=== PATIENT | male | born 1960 | race Caucasian/White ===

== ENCOUNTER → 2017-01-25 | Outpatient (CLI) | payer BC ==
[2017-01-25 08:33] LABS: CHLORIDE,CL 104 mmol/L (98-110); SODIUM,NA 140 mmol/L (136-146)
== END ==
LOC: MW.CHFP 07:30
PROVIDERS: ATTEND Student in an Organized Health Care Education/Training Program
DX: Z00.00 Encounter for general adult medical examination without abnormal findings (principal); D58.2 Other hemoglobinopathies
CPT/HCPCS: 36415; 80053; 80061; 85027

== ENCOUNTER → 2017-02-01 | Outpatient (CLI) | payer BC ==
[2017-02-01 08:28] LABS: CHLORIDE,CL 107 mmol/L (98-110); SODIUM,NA 141 mmol/L (136-146)
== END | disposition home or self-care (01) ==
LOC: MW.LAB 07:30
PROVIDERS: ATTEND Internal Medicine Endocrinology, Diabetes & Metabolism
DX: E29.1 Testicular hypofunction (principal)
CPT/HCPCS: 36415; 80053; 84402; 84403; 84439; 84443

== ENCOUNTER 2017-09-10 10:42 | Observation (INO) | payer BC ==
[2017-09-10] MEDS ORDERED: Aspirin 81 MG Tab.Chew PO ONE (10:58)
[2017-09-10] MEDS ORDERED: Sodium Chloride 0.9% 10 ML Syringe FLUSH PRN (10:58)
[2017-09-10] MEDS ORDERED: Sodium Chloride 0.9% 2.5 ML Syringe FLUSH PRN (10:58)
--- NOTE | 2017-09-10 10:58 | EDM.PDOC ---
ED HPI GENERAL MEDICAL PROBLEM - General Chief Complaint: General Stated Complaint: LT ARM WEAKNESS Time Seen by Provider: 09/10/17 10:45 Source of Information: Reports: Patient History Limitations: Reports: No Limitations - History of Present Illness INITIAL COMMENTS - FREE TEXT/NARRATIVE: History of present illness: []Patient arrives ER complaining of left arm tingling radiating down to his thumb. It began at 7:30 when he was in a stressful meeting. He denies any chest or neck pain, shortness of breath, lightheadedness or dizziness. She has not had this pain in the past. Review of systems: As per history of present illness and below otherwise all systems reviewed and negative. Past medical history: As per history of present illness and as reviewed below otherwise noncontributory. Surgical history: As per history of present illness and as reviewed below otherwise noncontributory. Social history: No reported history of drug or alcohol abuse. Family history: As per history of present illness and as reviewed below otherwise noncontributory. Physical exam: General: Well developed, well nourished in NAD HEENT: Atraumatic, normocephalic, pupils reactive, negative for conjunctival pallor or scleral icterus, mucous membranes moist, throat clear, neck supple, nontender, trachea midline. Lungs: Clear to auscultation, breath sounds equal bilaterally, chest nontender. Heart: S1S2, regular, negative for clicks, rubs, or JVD. Abdomen: Soft, nondistended, nontender. Negative for masses or hepatosplenomegaly. Negative for costovertebral tenderness. Pelvis: Stable nontender. Genitourinary: Deferred. Rectal: Deferred. Extremities: Atraumatic, negative for cords or calf pain. Neurovascular unremarkable. Neuro: Awake, alert, oriented. Cranial nerves II through XII unremarkable. Cerebellum unremarkable. Motor and sensory unremarkable throughout. Exam nonfocal. Diagnostics: []EKG labs and chest x-ray done essentially all normal Therapeutics: []aspirin nitroglycerin given Impression: []Left arm tingling Plan: []Admit for observation Definitive disposition and diagnosis as appropriate pending reevaluation and review of above. Headache Pain Score (Numeric/FACES): 2 - Related Data Allergies Allergy/AdvReac Type Severity Reaction Status Date / Time Penicillins Allergy Rash Verified 01/18/16 12:44 Home Meds: Home Meds Losartan [Cozaar] 25 mg PO BID 09/10/17 [History] Past Medical History Cardiovascular History: Reports: Hypertension Respiratory History: Reports: None Other Gastrointestinal History: occasional heartburn Genitourinary History: Reports: None Musculoskeletal History: Reports: Arthritis, Fracture Neurological History: Reports: None Psychiatric History: Reports: None Endocrine/Metabolic History: Reports: None Hematologic History: Reports: None Immunologic History: Reports: None Oncologic (Cancer) History: Reports: None Dermatologic History: Reports: None - Past Surgical History Head Surgeries/Procedures: Reports: None HEENT Surgical History: Reports: Oral Surgery Social & Family History - Tobacco Use Smoking Status *Q: Never Smoker Second Hand Smoke Exposure: No - Caffeine Use Caffeine Use: Reports: Coffee - Recreational Drug Use Recreational Drug Use: No Drug Use in Last 12 Months: No ED ROS GENERAL - Review of Systems Review Of Systems: See Below (See history of present illness) ED EXAM, GENERAL - Physical Exam Exam: See Below (See history of present illness) Course - Vital Signs Last Recorded V/S: Last Vital Signs Temp 97.2 F 09/10/17 10:51 Pulse 67 09/10/17 13:39 Resp 18 09/10/17 13:39 BP 136/92 H 09/10/17 13:39 Pulse Ox 98 09/10/17 13:39 - Orders/Labs/Meds Orders: Active Orders 24 hr Category Date Time Status Admission Status [Patient Status] [ADT] Stat ADT 09/10/17 13:05 Active EKG Documentation Completion [RC] STAT Care 09/10/17 11:20 Active Sodium Chloride 0.9% [Saline Flush] Med 09/10/17 10:58 Active 10 ml FLUSH ASDIRECTED PRN Sodium Chloride 0.9% [Saline Flush] Med 09/10/17 10:58 Active 2.5 ml FLUSH ASDIRECTED PRN Saline Lock Insert [OM.PC] Stat Oth 09/10/17 10:58 Ordered Medication Orders Acetaminophen (Tylenol) 650 mg PO Q4H PRN PRN Reason: Pain (mild 1-3) Enoxaparin Sodium (Lovenox) 40 mg SUBCUT Q24H JESSIE Losartan Potassium (Cozaar) 25 mg PO BID JESSIE Sodium Chloride (Saline Flush) 10 ml FLUSH ASDIRECTED PRN PRN Reason: Keep Vein Open Last Admin: 09/10/17 11:04 Dose: 10 ml Sodium Chloride (Saline Flush) 2.5 ml FLUSH ASDIRECTED PRN PRN Reason: Keep Vein Open Last Admin: 09/10/17 11:04 Dose: 2.5 ml Labs: Laboratory Tests 09/10/17 09/10/17 Range/Units 10:55 10:55 WBC 3.32 L (4.0-11.0) K/uL RBC 4.52 (4.50-5.90) M/uL Hgb 14.8 (13.0-17.0) g/dL Hct 42.2 (38.0-50.0) % MCV 93.4 (80.0-98.0) fL MCH 32.7 H (27.0-32.0) pg MCHC 35.1 (31.0-37.0) g/dL RDW Std Deviation 44.4 (28.0-62.0) fl RDW Coeff of Monica 13 (11.0-15.0) % Plt Count 135 L (150-400) K/uL MPV 9.80 (7.40-12.00) fL Neut % (Auto) 71.7 (48.0-80.0) % Lymph % (Auto) 15.7 L (16.0-40.0) % Mchenry % (Auto) 10.5 (0.0-15.0) % Eos % (Auto) 1.8 (0.0-7.0) % Baso % (Auto) 0.3 (0.0-1.5) % Neut # (Auto) 2.4 (1.4-5.7) K/uL Lymph # (Auto) 0.5 L (0.6-2.4) K/uL Mchenry # (Auto) 0.4 (0.0-0.8) K/uL Eos # (Auto) 0.1 (0.0-0.7) K/uL Baso # (Auto) 0.0 (0.0-0.1) K/uL Nucleated RBC % 0.0 /100WBC Nucleated RBCs # 0 K/uL Sodium 139 (136-146) mmol/L Potassium 3.8 (3.5-5.1) mmol/L Chloride 102 (98-110) mmol/L Carbon Dioxide 27 (21-31) mmol/L BUN 13 (6.0-23.0) mg/dL Creatinine 1.0 (0.6-1.5) mg/dL Est Cr Clr Drug Dosing 77.90 mL/min Estimated GFR (MDRD) > 60.0 ml/min Glucose 121 H (60-110) mg/dL Calcium 9.4 (8.8-10.8) mg/dL Total Bilirubin 1.0 (0.1-1.5) mg/dL AST 17 (5-40) IU/L ALT 17 (8-54) IU/L Alkaline Phosphatase 25 L (40-150) Troponin I < 0.10 (0.0-0.29) NG/ML Total Protein 7.6 (6.0-8.0) g/dL Albumin 4.2 (3.5-5.0) g/dL Globulin 3.4 (2.0-3.5) g/dL Albumin/Globulin Ratio 1.2 L (1.3-2.8) Meds: Medications Generic Name Dose Route Start Last Admin Trade Name Freq PRN Reason Stop Dose Admin Acetaminophen 650 mg 09/10/17 13:34 Tylenol PO Q4H PRN Pain (mild 1-3) Enoxaparin Sodium 40 mg 09/10/17 14:00 Lovenox SUBCUT Q24H JESSIE Losartan Potassium 25 mg 09/10/17 21:00 Cozaar PO BID JESSIE Sodium Chloride 10 ml 09/10/17 10:58 09/10/17 11:04 Saline Flush FLUSH 10 ml ASDIRECTED PRN Administration Keep Vein Open Sodium Chloride 2.5 ml 09/10/17 10:58 09/10/17 11:04 Saline Flush FLUSH 2.5 ml ASDIRECTED PRN Administration Keep Vein Open Discontinued Medications Generic Name Dose Route Start Last Admin Trade Name Freq PRN Reason Stop Dose Admin Aspirin 324 mg 09/10/17 10:58 09/10/17 11:02 Aspirin PO 09/10/17 10:59 324 mg ONETIME ONE Administration Nitroglycerin 0.4 mg 09/10/17 10:58 09/10/17 11:15 Nitrostat SL 0.4 mg Q5M PRN Administration Chest Pain Departure - Departure Time of Disposition: 14:01 Disposition: Refer to Observation Condition: Good Clinical Impression: Tingling of left upper extremity - Discharge Information - My Orders Last 24 Hours: My Active Orders 09/10/17 10:58 Sodium Chloride 0.9% [Saline Flush] 10 ml FLUSH ASDIRECTED PRN Sodium Chloride 0.9% [Saline Flush] 2.5 ml FLUSH ASDIRECTED PRN Saline Lock Insert [OM.PC] Stat 09/10/17 11:20 EKG Documentation Completion [RC] STAT - Assessment/Plan Last 24 Hours: My Active Orders 09/10/17 10:58 Sodium Chloride 0.9% [Saline Flush] 10 ml FLUSH ASDIRECTED PRN Sodium Chloride 0.9% [Saline Flush] 2.5 ml FLUSH ASDIRECTED PRN Saline Lock Insert [OM.PC] Stat 09/10/17 11:20 EKG Documentation Completion [RC] STAT
[2017-09-10] MEDS: Nitroglycerin 0.4 MG Tab.SL SL PRN ×3 (11:02→11:15)
[2017-09-10 11:25] LABS: CHLORIDE,CL 102 mmol/L (98-110); SODIUM,NA 139 mmol/L (136-146)
--- NOTE | 2017-09-10 11:30 | CR ---
EXAMINATION: Portable chest radiograph. HISTORY: Shortness of breath. FINDINGS: The trachea is midline. The cardiomediastinal silhouette is within normal limits. No pulmonary infilt rates, effusions or pneumothorax. Osseous structures appear unremarkable. IMPRESSION: No acute cardiopulmonary process.
--- NOTE | 2017-09-10 12:11 | CT ---
EXAMINATION: Non contrast CT head. Coronal and sagittal reformats. HISTORY: Pain FINDINGS: No evidence of intra or extra axial hemorrhage, mass, midline shift, hydrocephalus or edema. No hypoattenuation changes in the major vascular territories to suggest acute infarct. No abnormal intracranial calcifications are detected. No evidence of substantial vascular calcificat ions. Paranasal sinuses and mastoid air cells are well aerated without substantial findings. Orbits and gl obes are symmetric. Pituitary fossa appears unremarkable. Calvarium is intact. No evidence of skull fracture. IMPRESSION: No acute intracranial findings.
[2017-09-10] MEDS ORDERED: Acetaminophen 325 MG Tab PO PRN (13:34)
--- NOTE | 2017-09-10 13:40 | PCM.HP ---
H&P History of Present Illness - General Date of Service: 09/10/17 Admit Problem/Dx: L arm tingling, ACS rule out Source of Information: Patient History Limitations: Reports: No Limitations - History of Present Illness Initial Comments - Free Text/Narative: This 56 year old male with pmh of HTN presented to the ED today with concerns of L arm tingling, headache and some troubles finding or use the right words starting around 7:30 am. He reports he was in a stressful meeting today when the symptoms started, he was ambulating and at rest at different times when this started. He denies activity made it worse. He reports saying words he didn' t mean to or that the wrong words came out. He reports the headache initially was 4/10 to occiput, no blurred or double vision. No neck pain with movement. He denies jaw pain chest pain or palpitations. He reports when coming into the ED, nitro SL did nothing for his L arm tingling, but currently it is almost gone. His Headache is now 1/10 dull nagging more that anything. He denies weakness to L arm. No trouble swallowing. Does report at times still some trouble finding words, but conversation with him is easy flowing. Does seem to get stressed and highly agitated when work is brought up. He denies tobacco use or recreational drug use. He reports drinking red wine 4 glasses a week. He reports Mother has parkinsons, HTN, and DM, his father at age 61 of lung cancer and his paternal grandfather had [place] in his 40s, but lived to be high 90s. He recently changed to a gluten free diet which helped GERD and skin irritations. In the ED troponin negative. He was given Nitro x 3 with no improvement. CXR negative. Head CT negative. BP noted to be elevate 150-160/90s. He was given ASA. He will be admitted ACS rule out with L arm tingling. Headache Pain Score (Numeric/FACES): 2 - Related Data Allergies/Adverse Reactions: Allergies Allergy/AdvReac Type Severity Reaction Status Date / Time gluten Allergy Abdominal Verified 09/10/17 14:49 Cramps Penicillins Allergy Rash Verified 10/17/15 12:44 Home Medications: Home Meds Losartan [Cozaar] 25 mg PO BID 09/10/17 [History] Aspirin 81 mg PO DAILY #30 tab.chew 09/11/17 [Rx] Past Medical History Cardiovascular History: Reports: Hypertension. Denies: Afib, Blood Clots/VTE/ DVT, CAD, [place] Respiratory History: Reports: None. Denies: Asthma, COPD, PE, SOB Other Gastrointestinal History: occasional heartburn Genitourinary History: Reports: None. Denies: Chronic Renal Insuffiency Musculoskeletal History: Reports: Arthritis, Fracture Neurological History: Reports: None. Denies: CVA, TIA Psychiatric History: Reports: None Endocrine/Metabolic History: Reports: Obesity/BMI 30+ Hematologic History: Reports: None Immunologic History: Reports: None Oncologic (Cancer) History: Reports: None Dermatologic History: Reports: None - Past Surgical History Head Surgeries/Procedures: Reports: None HEENT Surgical History: Reports: Oral Surgery Musculoskeletal Surgical History: Reports: Shoulder Surgery (R shoulder) Social & Family History - Tobacco Use Smoking Status *Q: Never Smoker Second Hand Smoke Exposure: No - Caffeine Use Caffeine Use: Reports: Coffee - Alcohol Use Alcohol Use Frequency: Weekly (4 drinks weekly) - Recreational Drug Use Recreational Drug Use: No Drug Use in Last 12 Months: No H&P Review of Systems - Review of Systems: Review Of Systems: See Below General: Reports: No Symptoms. Denies: Fever, Chills, Malaise, Weakness HEENT: Reports: Headaches (1/10 to occiput, ). Denies: Sinus Congestion, Sore Throat, Vertigo, Visual Changes Pulmonary: Reports: No Symptoms. Denies: Shortness of Breath, Cough, Sputum Cardiovascular: Reports: No Symptoms. Denies: Chest Pain, Palpitations, Edema, Lightheadedness Gastrointestinal: Reports: No Symptoms. Denies: Abdominal Pain, Black Stool, Bloody Stool, Diarrhea, Distension, Nausea, Vomiting Genitourinary: Reports: No Symptoms. Denies: Dysuria, Frequency, Burning, Incontinence Musculoskeletal: Reports: No Symptoms. Denies: Neck Pain Skin: Reports: No Symptoms Neurological: Reports: Tingling (L shoulder to fingers.) Hematologic/Lymphatic: Reports: No Symptoms Immunologic: Reports: No Symptoms, Food Allergy (gluten) Exam - Exam Exam: See Below - Vital Signs Vital Signs: Last Vital Signs Temp 97.2 F 09/10/17 10:51 Pulse 67 09/10/17 13:39 Resp 18 09/10/17 13:39 BP 136/92 H 09/10/17 13:39 Pulse Ox 98 09/10/17 13:39 Weight: 90.3 kg - Exam General: Alert, Oriented, Cooperative HEENT: Conjunctiva Clear, Mucosa Moist & [place], Pupils Equal, Pupils Reactive Neck: Supple, Trachea Midline, 2 Lungs: Clear to Auscultation, Normal Respiratory Effort Cardiovascular: Regular Rate, Regular Rhythm GI/Abdominal Exam: Normal Bowel Sounds, Soft, Non-Tender, No Organomegaly, No Distention, No Abnormal Bruit, No Mass, Pelvis Stable Back Exam: Normal Inspection, Full Range of Motion, NT Extremities: Normal Inspection, Normal Range of Motion, Non-Tender, No Pedal Edema, Normal Capillary Refill Neurological: Cranial Nerves Intact, Reflexes Equal Bilateral, Strength Equal Bilateral, Normal Gait, Normal Speech, Normal Tone Neuro Extensive - Mental Status: Alert, Oriented x3, Normal Mood/Affect, Normal Cognition, Memory Intact Neuro Extensive - Motor, Sensory, Reflexes: CN II-XII Intact, Normal Gait, Normal Reflexes. No: Tongue Deviation (L), Tongue Deviation (R), Abnormal Finger to Nose Psychiatric: Alert, Normal Affect, Normal Mood, Agitated (when talking about work) - Patient Data Result Diagrams: 09/10/17 10:55 09/10/17 10:55 EKG INTERPRETATION EKG Date: 09/10/17 Rhythm: NSR Rate (Beats/Min): 75 P-Wave: Present QRS: Normal ST-T: Normal Comparison: NA - No Prior EKG *Q Meaningful Use (ADM) - VTE *Q VTE Criteria *Q: - Stroke *Q Stroke Criteria *Q: - AMI *Q AMI Criteria *Q: - Problem List (1) HTN (hypertension) SNOMED Code(s): 70302146 ICD Code: I10 - ESSENTIAL (PRIMARY) HYPERTENSION Status: Acute Current Visit: Yes Qualifiers: Hypertension type: essential hypertension Qualified Code(s): I10 - Essential (primary) hypertension (2) Tingling of left upper extremity SNOMED Code(s): 374557649 ICD Code: R20.2 - PARESTHESIA OF SKIN Status: Acute Current Visit: Yes Problem List Initiated/Reviewed/Updated: Yes Orders Last 24hrs: Active Orders 24 hr Category Date Time Status Intake and Output [RC] QSHIFT Care 09/10/17 13:34 Ordered Oxygen Therapy [RC] PRN Care 09/10/17 13:34 Ordered Telemetry Monitoring [Cardiac Monitoring] [RC] . Care 09/10/17 13:37 Ordered DIRECTED Up ad Marisela [RC] ASDIRECTED Care 09/10/17 13:34 Ordered VTE/DVT Education [RC] PER UNIT ROUTINE Care 09/10/17 13:34 Ordered Vital Signs [RC] Q4H Care 09/10/17 13:34 Ordered Heart Healthy Diet [DIET] Diet 09/10/17 Lunch Ordered GLYCOSYLATED HEMOGLOBIN,HGBA1C [CHEM] Routine Lab 09/10/17 13:34 Ordered LIPID PANEL [CHEM] Routine Lab 09/10/17 13:34 Ordered TROPONIN I [CHEM] Q6H Lab 09/10/17 17:00 Ordered TROPONIN I [CHEM] Q6H Lab 09/10/17 23:00 Ordered Acetaminophen [Tylenol] Med 09/10/17 13:34 Ordered 650 mg PO Q4H PRN Enoxaparin [Lovenox] Med 09/10/17 13:45 Ordered 40 mg SUBCUT DAILY Losartan Med 09/10/17 21:00 Ordered 25 mg PO BID Resuscitation Status Routine Resus Stat 09/10/17 13:34 Ordered Medication Orders Acetaminophen (Tylenol) 650 mg PO Q4H PRN PRN Reason: Pain (mild 1-3) Enoxaparin Sodium (Lovenox) 40 mg SUBCUT DAILY JESSIE Non-Formulary Medication (Losartan) 25 mg PO BID JESSIE Sodium Chloride (Saline Flush) 10 ml FLUSH ASDIRECTED PRN PRN Reason: Keep Vein Open Last Admin: 09/10/17 11:04 Dose: 10 ml Sodium Chloride (Saline Flush) 2.5 ml FLUSH ASDIRECTED PRN PRN Reason: Keep Vein Open Last Admin: 09/10/17 11:04 Dose: 2.5 ml Assessment/Plan Comment:: This 56 year old male admitted with ACS rule out due to L arm tingling 1. ACS rule out: Will monitor on telemetry, trend troponins. No chest pain. Does not take daily ASA at home. Lipid panel LDL 116, HDL 39 A1c 5.6%. Will arrange outpatient stress test. 2. L arm tingling: Possible TIA, possibly secondary to anxiety/agitation with work. Had some wording finding troubles. Will obtain carotid duplex and MRI brain. Patient aware and ok with this testing. 3. HTN: Will monitor. Continue Losartan VTE prophylaxis: Lovenox. Dispo: 1-2 days pending improvement. Discharge Plan: Discharge Diagnoses: L arm tingling and headache-resolved HTN Zack was monitored overnight. Telemetry remained SR, ACS ruled out with three negative troponins and no ST segment changes. MRI of brain and carotid US obtained due to L arm tingling and word finding concerns during the acute phase at work. Both returned negative. Carotid US showed minimal athermatous changes bilaterally without significant elevated velocities or stenosis. Likely this episode occurred secondary to anxitey and frustration at work. We discussed at length how to improve health with diet as well as lowering stress levels at work. I will set him up for a stress test as an outpatient. I also encouraged him to take a baby aspirin daily as well. He is to continue taking Losartan BID. He will be set up with outpatient stress test and follow up with PCP in 1 week.
[2017-09-10] MEDS ORDERED: Enoxaparin 40 MG/0.4 ML Syringe SUBCUT SCH (14:00)
[2017-09-10] MEDS ORDERED: Gadobenate Dimeglumine 529 MG/ML 20 ML SDV IVPUSH STA (15:55)
--- NOTE | 2017-09-10 16:57 | US ---
EXAMINATION: Carotid US with trimble scale and duplex imaging. HISTORY: arm tingling FINDINGS: Ultrasound examination of bilateral cervical carotid arteries was performed using trimble scale and dupl ex imaging. Mild scattered atheromatous changes noted within the carotid arteries bilaterally.. Ant egrade flow within the vertebrals. These are the peak velocities in cm per second (systole), right and left respectively, by a comma: CCA (common carotid artery) - 102, 107 ICA (internal carotid artery) - 92, 97 ECA (External carotid artery) - 127, 91 ICA/CCA systolic ratio Right - 0.6 Left - 0.5 IMPRESSION: Minimal atheromatous changes noted within the carotid arteries bilaterally without significantly elev ated velocities or stenosis noted on grayscale imaging.
[2017-09-10] MEDS: Losartan 50 MG Tab PO SCH (21:42)
[2017-09-11] MEDS: Losartan 50 MG Tab PO SCH (08:04)
[2017-09-11 08:06] VITALS: BP 117/73
[2017-09-11] MEDS ORDERED: Aspirin 81 MG Tab.Chew PO SCH (09:00)
--- NOTE | 2017-09-11 10:49 | MR ---
EXAM DATE: 09/10/17 PATIENT'S AGE: 56 Patient: JUANJOSE HART Facility: [place], [place] Site . Site : 1960 Study: MRI Head W/ and W/O Cont [id number]/12/2017 4:31:52 PM Ordering Physician: Danii Gomez Final Report: Indication: Word finding difficulties. Left arm tingling. Comparison: None. Technique: Multiplanar T1, T2, FLAIR, gradient, and diffusion weighted sequences. Post gadolinium T1 sequences. Findings: Normal brain parenchymal morphology. Few scattered foci of T2 signal within the white matter of the frontal lobes, left greater than right may represent chronic small vessel ischemic changes or sequela migraine headache. No intracranial hemorrhage. No abnormal ventricular dilatation. Intracranial vascular flow voids are preserved. No mass or mass effect. No midline shift. No restricted diffusion to suggest acute ischemia. No susceptibility artifact to suggest hemosiderin of remote hemorrhage. No abnormal enhancement or enhancing lesions. Bilateral orbits are unremarkable. Normal appearing sella. Visualized paranasal sinuses and mastoid air cells are unremarkable. Impression: 1. No acute intracranial abnormality. 2. Normal brain parenchymal morphology. Scattered nonspecific foci of T2 signal within the white matter of the frontal lobes consistent with chronic small vessel ischemic changes or sequela of migraine headache. 3. No abnormal enhancement or enhancing lesions Dictated by Arley Astorga MD @ Sep 10 2017 4:44PM (Electronic Signature) Report Signed by Proxy. KEVIN
== END 2017-09-11 11:10 | disposition home or self-care (01) ==
LOC: MW.ED 10:42 → MW.MS 13:16
PROVIDERS: ADMIT Internal Medicine; ATTEND Internal Medicine
DX: R20.2 Paresthesia of skin (principal); I10 Essential (primary) hypertension; Z88.0 Allergy status to penicillin; Z91.018 Allergy to other foods; Z79.82 Long term (current) use of aspirin; M19.90 Unspecified osteoarthritis, unspecified site; E66.9 Obesity, unspecified; Z68.30 Body mass index [BMI] 30.0-30.9, adult
CPT/HCPCS: 36415; 70450; 70553; 71010; 80053; 80061; 83036; 84484; 85025; 93005; 93880; 96372; 99285; A9270; A9577; G0378; J1650; 99284